=== PATIENT | female | born 1935 | race Caucasian/White ===

== ENCOUNTER 2016-11-23 12:02 | Emergency (ER) | payer BC, MEDICARE ==
--- NOTE | 2016-11-23 13:21 | RAD ---
THREE VIEWS RIGHT WRIST: History: Pain and swelling. Date: 11-23-16 FINDINGS: AP, lateral, and oblique views of the right wrist demonstrate severe osteoarthritic changes seen in the articulation of the base of the first metacarpal and trapezium. No evidence of acute fractures or bony lesions seen otherwise. IMPRESSION: Severe first carpal metacarpal osteoarthritic changes. POS: [facility]
== END 2016-11-23 13:30 | disposition home or self-care (01) ==
LOC: NAV ERS 12:02
DX: M25.531 Pain in right wrist (principal); E78.5 Hyperlipidemia, unspecified; E78.00 Pure hypercholesterolemia, unspecified; I10 Essential (primary) hypertension; Z79.82 Long term (current) use of aspirin; Z79.899 Other long term (current) drug therapy

== ENCOUNTER 2016-12-21 11:24 | Outpatient (CLI) | payer MEDICARE ==
[2016-12-21 13:57] LABS: #Lymphocytes 1.3 thou/uL (1.20-3.40); #Monocytes 0.3 thou/uL (0.11-0.59); #Neutrophils 2.6 thou/uL (1.40-6.50); %Basophils 0.8 % (0.0-1.0); %Eosinophils 0.5 % (0.0-10.0); %Lymphocytes 30.2 % (21.0-51.0); %Monocytes 7.9 % (0.0-10.0); %Neutrophils 60.6 % (42.0-75.0); Hemoglobin 13.1 g/dL (12.0-16.0); Mean Corpuscular HGB CONC 33.7 g/dL (32.0-36.0); Mean Corpuscular Hemoglobin 31.9 pg (27.0-31.0); Mean Corpuscular Volume 94.9 fl (81.0-99.0); Mean Platelet Volume 6.9 fL (7.4-10.4); Platelet Count 253 thou/uL (130-400); RBC Distribution Width 11.6 % (11.5-14.5); Red Blood Cell (RBC) Count 4.11 mill/uL (4.20-5.40); White Blood Cell (WBC) Count 4.3 thou/uL (4.8-10.8)
[2016-12-21 14:12] LABS: ALT (SGPT) 9 U/L (0-55); AST (SGOT) 23 U/L (5-34); Albumin 4.1 g/dL (3.4-4.8); Alkaline Phosphatase 77 U/L (40-150); Anion Gap 14 mmol/L (10-20); BUN (Urea Nitrogen) 9 mg/dL (9.8-20.1); Bilirubin, Direct 0.3 mg/dL (0.1-0.3); Bilirubin, Total 0.8 mg/dL (0.2-1.2); Calc. Creatinine Clearance 0 mL/min (70-130); Calcium 8.9 mg/dL (7.8-10.44); Carbon Dioxide 23 mmol/L (23-31); Cardiac Risk 2.7 (Less than 4.5); Chloride 93 mmol/L (98-107); Cholesterol 152 mg/dL (< 200 Desired); Estimated GFR-MDRD 72; Glucose 99 mg/dL (83-110); HDL Cholesterol 56 mg/dL (>60 Neg Risk); LDL Cholesterol, Calculated 83 mg/dL; Potassium 3.3 mmol/L (3.5-5.1); Protein, Total 6.9 g/dL (5.8-8.1); Sodium 127 mmol/L (136-145); Triglycerides 65 mg/dL (Less than 150)
[2016-12-21 14:55] LABS: Hemoglobin A1c 5.2 % (4.0-6.0)
== END 2016-12-21 11:25 | disposition home or self-care (01) ==
LOC: NAVSJIPCSP 11:24
PROVIDERS: ATTEND Family Medicine
DX: E78.00 Pure hypercholesterolemia, unspecified (principal); K21.9 Gastro-esophageal reflux disease without esophagitis; I10 Essential (primary) hypertension; M62.81 Muscle weakness (generalized); G89.29 Other chronic pain; M54.5 Low back pain; Z79.899 Other long term (current) drug therapy
CPT/HCPCS: 36415; 80048; 80061; 80076; 83036; 84443; 85025

== ENCOUNTER 2017-01-02 19:03 | Emergency (ER) | payer MEDICARE ==
[2017-01-02] MEDS ORDERED: Sodium Chloride 0.9% 1,000 ML ONE (19:48)
[2017-01-02 20:10] LABS: ALT (SGPT) 13 U/L (0-55); AST (SGOT) 24 U/L (5-34); Alkaline Phosphatase 79 U/L (40-150); Anion Gap 16 mmol/L (10-20); BUN (Urea Nitrogen) 19 mg/dL (9.8-20.1); Bilirubin, Total 1.6 mg/dL (0.2-1.2); Calc. Creatinine Clearance 0 mL/min (70-130); Calcium 9.4 mg/dL (7.8-10.44); Carbon Dioxide 23 mmol/L (23-31); Chloride 79 mmol/L (98-107); Estimated GFR-MDRD 73; Globulin 3.2 g/dL (2.4-3.5); Glucose 126 mg/dL (83-110); Protein, Total 7.2 g/dL (5.8-8.1)
[2017-01-02 20:17] LABS: CKMB 3.2 ng/mL (0-6.6); Troponin I Less than 0.010 ng/mL (< 0.028)
[2017-01-02 20:18] LABS: Blood, Urine Negative (Negative); Clarity Slightly Cloudy (Clear); Glucose, Urine (Dipstick) Negative (Negative); Leukocyte Negative (Negative); Nitrite Negative (Negative); Protein, Urine (Dipstick) 30 mg/dL (Neg-Trace); Specific Gravity, Urine 1.015 (1.005-1.030); Urobilinogen > or = 8.0 mg/dL (0.2-1.0)
[2017-01-02 20:21] LABS: #Lymphocytes 1.1 thou/uL (1.20-3.40); #Monocytes 0.7 thou/uL (0.11-0.59); #Neutrophils 5.5 thou/uL (1.40-6.50); %Basophils 0.6 % (0.0-1.0); %Eosinophils 0.1 % (0.0-10.0); %Lymphocytes 14.7 % (21.0-51.0); %Monocytes 9.1 % (0.0-10.0); %Neutrophils 75.5 % (42.0-75.0); Hemoglobin 13.8 g/dL (12.0-16.0); Mean Corpuscular HGB CONC 38.1 g/dL (32.0-36.0); Mean Corpuscular Hemoglobin 32.5 pg (27.0-31.0); Mean Corpuscular Volume 85.5 fl (81.0-99.0); Mean Platelet Volume 7.7 fL (7.4-10.4); PLT Morphology Comment Appears Adequate; Platelet Count 218 thou/uL (130-400); Potassium 2.4 mmol/L (3.5-5.1); RBC Distribution Width 10.3 % (11.5-14.5); RBC Morphology Normal; Red Blood Cell (RBC) Count 4.25 mill/uL (4.20-5.40); Sodium 116 mmol/L (136-145); White Blood Cell (WBC) Count 7.2 thou/uL (4.8-10.8)
[2017-01-02 20:24] LABS: Bilirubin Negative (Negative); Icto Negative (Negative)
--- NOTE | 2017-01-02 20:24 | CT ---
CT BRAIN 01/02/17 HISTORY: 81-year-old who fell Sunday and Sunday nights. Reports dizziness. Noncontrast enhanced CT images of the brain is obtained. The brain is unremarkable except for some d eep white matter ischemic changes. No evidence of acute intracranial masses, hemorrhages, or strokes seen. No evidence of sub or epidural hematoma seen. No evidence of subarachnoid blood seen. No evid ence of intraparenchymal hemorrhages seen. The calvarium is intact. IMPRESSION: Deep white matter ischemic changes. POS: [facility]
[2017-01-02 20:26] LABS: RBC/HPF 0-3 HPF (0-3); WBC/HPF 0-3 HPF (0-3)
[2017-01-02 20:27] LABS: Bacteria/HPF None Seen HPF (None Seen); Squamous Epithelial 0-3 HPF (0-3)
[2017-01-02 20:29] LABS: Crystals/HPF 1+ AMORPH PHOS HPF (Negative); Hyaline Casts/LPF 0-3 HYALINE CAST LPF (0-3 Hyaline)
--- NOTE | 2017-01-02 20:38 | CT ---
CT CERVICAL SPINE 01/02/17 HISTORY: Fall on Sunday and Sunday. Noncontrast enhanced CT images cervical spine obtained. Coronal and sagittal reconstructed images pe rformed. CT images demonstrate no evidence of acute cervical spine fractures. Bilateral facet degene rative changes seen. Posterior osteophytes seen at the C4-5, C5-6, C6-7 and C7-T1 levels. IMPRESSION: Changes of facet and intervertebral disc degeneration. No evidence of acute cervical spine fracture seen. POS: [facility]
[2017-01-02] MEDS ORDERED: Potassium Chloride 20 MEQ TAB ONE (21:04)
== END 2017-01-02 22:30 | disposition short-term general hospital (02) ==
LOC: NAV ERS 19:03
DX: E87.1 Hypo-osmolality and hyponatremia (principal); E87.6 Hypokalemia; E78.00 Pure hypercholesterolemia, unspecified; I10 Essential (primary) hypertension; Z79.899 Other long term (current) drug therapy
CPT/HCPCS: 51701; 70450; 72125; 80053; 81003; 81015; 82553; 84484; 85025; 93005; 96360; A4353; J7050

== ENCOUNTER 2017-01-16 17:00 | Outpatient (CLI) | payer MEDICARE ==
[2017-01-16 20:26] LABS: Anion Gap 14 mmol/L (10-20); BUN (Urea Nitrogen) 12 mg/dL (9.8-20.1); Calc. Creatinine Clearance 0 mL/min (70-130); Calcium 9.1 mg/dL (7.8-10.44); Carbon Dioxide 22 mmol/L (23-31); Chloride 100 mmol/L (98-107); Estimated GFR-MDRD 71; Glucose 106 mg/dL (83-110); Potassium 3.8 mmol/L (3.5-5.1); Sodium 132 mmol/L (136-145)
== END 2017-01-16 17:01 | disposition home or self-care (01) ==
LOC: NAV LAB 17:00
PROVIDERS: ATTEND Family Medicine
DX: E87.1 Hypo-osmolality and hyponatremia (principal)
CPT/HCPCS: 80048

== ENCOUNTER 2017-04-04 16:07 | Outpatient (CLI) | payer MEDICARE ==
--- NOTE | 2017-04-05 07:19 | RAD ---
RIGHT WRIST THREE VIEWS: 04/04/17 HISTORY: Fall. Pain. COMPARISON: 11/23/16. FINDINGS: Diffuse bone demineralization. There are degenerative changes in the first carpometacarpal joint spa ce. Intercarpal and radiocarpal joint space are preserved. Questionable fracture involving the hamate bone, best appreciated on the AP and lateral projections. Correlate for point tenderness. There is irregularity involving the pisiform bone with sclerosis llamas ggesting chronicity. IMPRESSION: Possible carpal bone fracture as above. Correlate for point tenderness. If there is concern, conside r CT. Code T POS: [facility]
--- NOTE | 2017-04-05 07:19 | RAD ---
FOUR VIEW LEFT HIP 04/04/17 INDICATION: Fall with left hip pain. FINDINGS: Partially imaged left hip hardware and left femoral hardware present. There is sclerotic margin from a remote fracture at the intertrochanteric region of the proximal left femur. There is osseous irre gularity with sclerosis involving the inferior left pubic ramus indicating subacute fracture. Slight cortical irregularity, age indeterminate, also involves the medial aspect of the inferior pubic k[place] us. IMPRESSION: Subacute appearing fracture involving the inferior left pubic ramus and slight cortical irregularity at the medial aspect of the inferior right pubic ramus. Correlate clinically. Sclerotic margin from remote fracture involving intertrochanteric region of the proximal left femur. POS: [facility]
--- NOTE | 2017-04-05 07:20 | RAD ---
FRONTAL VIEW PELVIS 04/04/17 CLINICAL HISTORY: Prior left hip injury related to fall. Reference made to 02/04/15. FINDINGS: Partially imaged left hip hardware again seen with heterotopic density. No acute, displaced fracture of the left hip. Interval healing of prior proximal left femoral fracture. There is mild osseous irregularity involving the inferior left pubic ramus, and to a lesser extent t he right inferior pubic ramus. IMPRESSION: Mild osseous irregularity involving the inferior left and right pubic rami. Component of sclerosis i s present. This may be on the basis of a subacute fracture. As necessary, findings may be further as sessed with dedicated CT if clinically indicated. POS: [facility]
== END 2017-04-04 16:08 | disposition home or self-care (01) ==
LOC: NAV RAD 16:07
PROVIDERS: ATTEND Nurse Practitioner Family
DX: M25.552 Pain in left hip (principal); W19.XXXS Unspecified fall, sequela; M25.531 Pain in right wrist; M89.9 Disorder of bone, unspecified; S32.502A Unspecified fracture of left pubis, initial encounter for closed fracture
CPT/HCPCS: 72170

== ENCOUNTER 2017-04-24 08:33 | Outpatient (CLI) | payer MEDICARE ==
[2017-04-24 12:42] LABS: Hemoglobin A1c 5.2 % (4.0-6.0)
[2017-04-24 12:51] LABS: Anion Gap 16 mmol/L (10-20); BUN (Urea Nitrogen) 13 mg/dL (9.8-20.1); Carbon Dioxide 24 mmol/L (23-31); Chloride 104 mmol/L (98-107); Potassium 3.7 mmol/L (3.5-5.1); Sodium 140 mmol/L (136-145)
[2017-04-24 12:52] LABS: ALT (SGPT) 12 U/L (8-55); AST (SGOT) 22 U/L (5-34); Albumin 4.2 g/dL (3.4-4.8); Alkaline Phosphatase 98 U/L (40-150); Bilirubin, Direct 0.3 mg/dL (0.1-0.3); Bilirubin, Total 0.8 mg/dL (0.2-1.2); Calc. Creatinine Clearance 0 mL/min (70-130); Calcium 9.5 mg/dL (7.8-10.44); Cholesterol 178 mg/dl (< 200 Desired); Estimated GFR-MDRD 73; Glucose 97 mg/dL (83-110); HDL Cholesterol 59 mg/dL (>60 Neg Risk); LDL Cholesterol, Calculated 102 mg/dL; Triglycerides 84 mg/dL (Less than 150)
[2017-04-24 14:12] LABS: Band 1 % (5-11); Hemoglobin 13.3 g/dL (12.0-16.0); Lymphocytes 32 % (21-51); MDiff Complete? YES; Mean Corpuscular HGB CONC 32.9 g/dL (32.0-36.0); Mean Corpuscular Hemoglobin 30.9 pg (27.0-31.0); Mean Corpuscular Volume 93.8 fl (81.0-99.0); Monocytes 8 % (0-10); Neutrophil 59 % (42-75); PLT Morphology Comment Appears Adequate; Platelet Count 213 thou/uL (130-400); RBC Distribution Width 11.6 % (11.5-14.5); Red Blood Cell (RBC) Count 4.32 mill/uL (4.20-5.40)
== END 2017-04-24 08:34 | disposition home or self-care (01) ==
LOC: NAVSJIPCSP 08:33
PROVIDERS: ATTEND Family Medicine
DX: I10 Essential (primary) hypertension (principal); M62.81 Muscle weakness (generalized); K21.9 Gastro-esophageal reflux disease without esophagitis; M54.5 Low back pain; F41.9 Anxiety disorder, unspecified; G89.29 Other chronic pain; F32.9 Major depressive disorder, single episode, unspecified; Z79.899 Other long term (current) drug therapy
CPT/HCPCS: 36415; 80048; 80061; 80076; 83036; 84443; 85025

== ENCOUNTER 2020-07-06 20:40 | Inpatient (IN) | payer MEDICARE ==
[2020-07-07 06:17] LABS: #Eosinphils 0.2 thou/uL (0.0-0.7); #Lymphocytes 1.2 thou/uL (1.20-3.40); #Monocytes 0.5 thou/uL (0.11-0.59); #Neutrophils 4.9 thou/uL (1.40-6.50); %Basophils 0.7 % (0.0-1.0); %Eosinophils 3.3 % (0.0-10.0); %Lymphocytes 16.7 % (21.0-51.0); %Monocytes 7.6 % (0.0-10.0); %Neutrophils 71.7 % (42.0-75.0); Hemoglobin 7.1 g/dL (12.0-16.0); Mean Corpuscular HGB CONC 32.1 g/dL (32.0-36.0); Mean Corpuscular Hemoglobin 30.9 pg (27.0-31.0); Mean Corpuscular Volume 96.4 fL (78.0-98.0); Mean Platelet Volume 8.1 fL (7.4-10.4); Platelet Count 163 thou/uL (130-400); RBC Distribution Width 12.5 % (11.5-14.5); Red Blood Cell (RBC) Count 2.29 mill/uL (4.20-5.40); White Blood Cell (WBC) Count 6.9 thou/uL (4.8-10.8)
[2020-07-07 06:30] LABS: ALT (SGPT) 13 U/L (8-55); AST (SGOT) 27 U/L (5-34); Albumin 2.5 g/dL (3.4-4.8); Alkaline Phosphatase 53 U/L (40-110); Anion Gap 12 mmol/L (10-20); BUN (Urea Nitrogen) 19 mg/dL (9.8-20.1); Bilirubin, Total 0.7 mg/dL (0.2-1.2); Calc. Creatinine Clearance 64 mL/min (70-130); Calcium 7.8 mg/dL (7.8-10.44); Carbon Dioxide 24 mmol/L (23-31); Chloride 107 mmol/L (98-107); Estimated GFR-MDRD 84; Globulin 2.1 g/dL (2.4-3.5); Glucose 94 mg/dL (83-110); Potassium 3.8 mmol/L (3.5-5.1); Protein, Total 4.6 g/dL (6.0-8.3); Sodium 139 mmol/L (136-145)
[2020-07-07] MEDS: Calcium Carbonate 600 MG + Vit D TAB PO SCH ×2 (09:00→20:58)
[2020-07-07] MEDS: Carvedilol 6.25 MG TAB PO SCH ×2 (09:00→20:56)
[2020-07-07] MEDS: Gabapentin 100 MG CAP PO SCH ×3 (09:01→20:58)
[2020-07-07] MEDS: Folic Acid 1 MG TAB PO SCH (09:01)
[2020-07-07] MEDS: Furosemide 40 MG TAB PO SCH (09:01)
[2020-07-07] MEDS: Amlodipine 5 MG TAB PO SCH (09:01)
[2020-07-07] MEDS: Ferrous Sulfate 325 MG TAB PO SCH (09:01)
--- NOTE | 2020-07-07 20:03 | HP ---
HISTORY: Ms. Posey is a well-developed 85-year-old white female, patient of mine. She was coming down the porch when she misstepped and fell on her right side. She had a resultant right wrist fracture and a right hip fracture. She was taken to [facility] where she had open reduction and internal fixation done. Postoperatively, she had some altered mental status and some delirium, thought to be secondary to her anesthesia and some early dementia that she has. She eventually was stabilized and now transferred to [facility] for physical therapy and occupational therapy because the therapist at [facility] did not think she was able to tolerate 3 hours of intense therapy daily. PAST MEDICAL HISTORY: Positive for hypertension, hypercholesterolemia, GERD, low back pain, generalized edema, neuropathy, left carpal tunnel syndrome, history of syncope, history of third-degree AV block with pacemaker, fibrocystic disease, mild spinal stenosis, pilonidal cyst, hiatal hernia, GERD, neuropathy, and generalized weakness. PAST SURGICAL HISTORY: Positive for; 1. 1941, tonsillectomy. 2. 1953, appendectomy. 3. 1951, excision of a pilonidal cyst. 4. 1968, BTL. 5. 1987, breast mass removed by Dr. Stanton. 6. Colonoscopy and upper GI EGD done in 1999. 7. Cataract extraction in 2003. 8. Cataract extraction in 2004. 9. Left hip ORIF in [place], 08/2014. 10. Pacemaker, 08/02/2018. 11. Right hip ORIF at [facility], March 2020. FAMILY HISTORY: Reveals the patient's father at age 84 of Parkinson's disease. The patient's mother at age 83 of breast cancer. The patient had 1 brother who at the age 46 of a stroke. The patient has 2 siblings who are living with 1 brother being a diabetic with amputated toes of 1 foot. The patient has a sister with thyroid issues and diagnosed with diabetes and stroke. The patient has 3 sons and 1 daughter. They are all basically healthy. SOCIAL HISTORY: Reveals the patient lives by herself. She does not smoke. She does not drink. She does not do drugs. She is retired and . She has 1 pet dog. ALLERGIES: THE PATIENT IS ALLERGIC TO PENICILLIN, WHICH GIVES HER HIVES; SULFA, WHICH GIVES HER HIVES; PRILOSEC, WHICH GIVES HER NAUSEA AND VOMITING; AND PAXIL, WHICH GIVES HER NAUSEA. PRESENT MEDICATIONS: Reveals the patient is presently on the following; 1. Tylenol q.6 hours 650 mg p.r.n. headache, fever, or mild pain. 2. Amlodipine 5 mg daily. 3. Calcium with vitamin D 600+ 400 one tab b.i.d. 4. Carvedilol 12.5 mg b.i.d. 5. Lovenox 40 mg subcu at bedtime. 6. Ferrous sulfate 325 mg daily. 7. Folic acid 1 mg daily. 8. Lasix 40 mg daily. 9. Gabapentin 100 mg daily. 10. Seroquel 25 mg p.o. at bedtime. REVIEW OF SYSTEMS: CONSTITUTIONAL: The patient denies fever, chills, or night sweats. She states she is somewhat weak and has pain in her right hip. HEENT: Head reveals she denies change in vision or change in hearing. RESPIRATORY: The patient denies cough, cold, congestion, hemoptysis, or productive sputum. CARDIOVASCULAR: The patient denies edema, dyspnea on exertion, chest pain, orthopnea, claudication, or paroxysmal nocturnal dyspnea. GASTROINTESTINAL: The patient denies nausea, vomiting, diarrhea, black or bloody stools. GENITOURINARY: The patient denies nocturia, hematuria, frequency, urgency, dysuria, incontinence, or decreased stream. MUSCULOSKELETAL: The patient complains of right hip pain from a fracture and from a postop surgery. ALLERGIES: The patient denies any significant allergies. NEUROLOGICAL: The patient denies dizziness, syncope, paralysis, numbness. PSYCHOLOGICAL: The patient denies mental illness, psych history, but has had some early dementia recently. PHYSICAL EXAMINATION: GENERAL: This is a well-developed, well-nourished, pleasant 85-year-old white female, in no apparent distress at this time. HEENT: Normocephalic and nontraumatic cranium. Pupils are equally round and reactive. Extraocular movements intact. Nose and throat are slightly dry, but clear. NECK: Supple without masses, nodes, or bruits. CHEST: Clear to auscultation. No rales, rhonchi, wheezes, or cough is heard. Left upper wall reveals a pacemaker. HEART: Reveals a regular rate and rhythm without murmurs, gallops, or rubs. ABDOMEN: Slightly obese, soft, nontender without organomegaly. Normal bowel sounds are noted. No rebound or guarding is noted. GENITOURINARY: Deferred. EXTREMITIES: Reveal a bandage over her right hip. Some trace edema today. NEUROLOGICAL: Grossly intact with no focal findings. ASSESSMENT: 1. Status post right hip fracture. 2. Hypertension. 3. Hyperlipidemia. 4. Gastroesophageal reflux disease. 5. Mild spinal stenosis with resultant low back pain. 6. Edema. 7. Neuropathy. 8. Left carpal tunnel syndrome. 9. Third-degree AV block with pacemaker. 10. Generalized weakness. 11. Pain. PLAN: 1. We will continue to monitor the patient's blood pressure closely and adjust medications as needed. 2. Continue to monitor the patient for reflux. 3. Continue Lovenox at this time. 4. Stress ulcer prophylaxis. 5. Decubitus precautions. 6. DVT prophylaxis per Primary Service. 7. Physical therapy and occupational therapy. Job ID: [id number] [facility] [place]
[2020-07-07] MEDS: Enoxaparin Sodium 40 MG/0.4 ML SYRINGE SC SCH (20:56)
[2020-07-07] MEDS: Acetaminophen 325 MG TAB PO PRN (20:57)
[2020-07-08 06:11] LABS: #Basophils 0.1 thou/uL (0.0-0.2); #Eosinphils 0.3 thou/uL (0.0-0.7); #Lymphocytes 1.7 thou/uL (1.20-3.40); #Monocytes 0.6 thou/uL (0.11-0.59); #Neutrophils 3.2 thou/uL (1.40-6.50); %Eosinophils 4.5 % (0.0-10.0); %Lymphocytes 29.3 % (21.0-51.0); %Monocytes 10.6 % (0.0-10.0); %Neutrophils 54.6 % (42.0-75.0); Mean Corpuscular HGB CONC 31.7 g/dL (32.0-36.0); Mean Corpuscular Hemoglobin 30.4 pg (27.0-31.0); Mean Corpuscular Volume 96.1 fL (78.0-98.0); Mean Platelet Volume 7.9 fL (7.4-10.4); Platelet Count 174 thou/uL (130-400); RBC Distribution Width 12.1 % (11.5-14.5); White Blood Cell (WBC) Count 5.9 thou/uL (4.8-10.8)
[2020-07-08 06:17] LABS: Bilirubin Small (Negative); Blood, Urine Trace (Negative); Clarity Clear (Clear); Glucose, Urine (Dipstick) Negative (Negative); Ketone, Urine Negative (Negative); Leukocyte Negative (Negative); Nitrite Negative (Negative); Protein, Urine (Dipstick) Negative (Neg-Trace); pH, Urine 5.5 (5.0-9.0)
[2020-07-08 06:19] LABS: Bacteria/HPF Rare-Few HPF (None Seen); RBC/HPF 0-3 HPF (0-3); Squamous Epithelial 0-3 HPF (0-3); WBC/HPF 0-3 HPF (0-3)
[2020-07-08] MEDS: Furosemide 40 MG TAB PO SCH (09:21)
[2020-07-08] MEDS: Folic Acid 1 MG TAB PO SCH (09:21)
[2020-07-08] MEDS: Ferrous Sulfate 325 MG TAB PO SCH (09:21)
[2020-07-08] MEDS: Acetaminophen 325 MG TAB PO PRN (09:21)
[2020-07-08] MEDS: Amlodipine 5 MG TAB PO SCH (09:21)
[2020-07-08] MEDS: Gabapentin 100 MG CAP PO SCH ×3 (09:22→20:11)
[2020-07-08] MEDS: Calcium Carbonate 600 MG + Vit D TAB PO SCH ×2 (09:22→20:11)
[2020-07-08] MEDS: Carvedilol 6.25 MG TAB PO SCH ×2 (09:22→20:11)
--- NOTE | 2020-07-08 10:09 | PRG ---
DATE OF SERVICE: 07/08/2020 SUBJECTIVE: Ms. Posey is up in her chair. She just woke up. She is getting ready to work with therapy. Denies any questions or concerns. OBJECTIVE: VITAL SIGNS: She is afebrile, heart rate 75, respirations 20, oxygen saturation 100% on nasal cannula, and blood pressure 131/69. CARDIOVASCULAR: S1 and S2 plus. RESPIRATORY: Normal vesicular breath sounds. ABDOMEN: Soft, obese, nontender. Bowel sounds heard in all quadrants. EXTREMITIES: Without cyanosis or clubbing. Peripheral pulses are palpable. Orthopedic incisions with dressing. CENTRAL NERVOUS SYSTEM: Generalized weakness. IMPRESSION: 1. Right hip fracture, status post surgical fixation. 2. Hypertension. 3. Dyslipidemia. 4. Gastroesophageal reflux disease. 5. Spinal stenosis. 6. Peripheral neuropathy. 7. Right wrist fracture with a splint. PLAN: 1. Continue current medications. 2. Heart healthy diet. 3. Monitor blood pressure and adjust medications. 4. Orthopedic precautions and incision care. 5. DVT prophylaxis per primary service. 6. Decubitus precaution. 7. Stress ulcer prophylaxis. 8. Routine laboratory values. 9. Continue therapy. Job ID: [id number]
[2020-07-08] MEDS: Enoxaparin Sodium 40 MG/0.4 ML SYRINGE SC SCH (20:12)
--- NOTE | 2020-07-09 07:33 | PRG ---
DATE OF SERVICE: 07/09/2020 SUBJECTIVE: Ms. Posey is sleeping, but arousable. She denies any questions or concerns. No family at bedside, discussed with nursing. OBJECTIVE: VITAL SIGNS: She is afebrile. T-max of 99.1 last night. Vitals from this morning are pending. Pulse 91, respirations 20, oxygen saturation 99% on room air, and blood pressure 130/68. CARDIOVASCULAR SYSTEM: S1 and S2 plus. RESPIRATORY SYSTEM: Normal vesicular breath sounds. ABDOMEN: Soft and nontender. Bowel sounds heard in all quadrants. EXTREMITIES: Without cyanosis or clubbing. CENTRAL NERVOUS SYSTEM: Generalized weakness, otherwise nonfocal. IMPRESSION: 1. Right hip fracture, status post surgical fixation. 2. Right wrist fracture, status post fall. 3. Hypertension. 4. Dyslipidemia. 5. Gastroesophageal reflux disease. 6. Spinal stenosis. 7. Peripheral neuropathy. 8. Deconditioning. PLAN: 1. Continue current medications. 2. Heart healthy diet. 3. Orthopedic precautions and incision care. 4. DVT prophylaxis with PlexiPulses. 5. Monitor blood pressure and adjust medications. 6. Decubitus precaution. 7. Stress ulcer prophylaxis. 8. Physical therapy. 9. Routine laboratory values. 10. Dr. Mcmullen on-call this weekend. Job ID: [id number]
[2020-07-09] MEDS: Amlodipine 5 MG TAB PO SCH (08:15)
[2020-07-09] MEDS: Calcium Carbonate 600 MG + Vit D TAB PO SCH ×2 (08:15→20:23)
[2020-07-09] MEDS: Gabapentin 100 MG CAP PO SCH ×3 (08:16→20:23)
[2020-07-09] MEDS: Carvedilol 6.25 MG TAB PO SCH ×2 (08:16→20:24)
[2020-07-09] MEDS: Ferrous Sulfate 325 MG TAB PO SCH (08:16)
[2020-07-09] MEDS: Folic Acid 1 MG TAB PO SCH (08:16)
[2020-07-09] MEDS: Furosemide 40 MG TAB PO SCH (08:16)
[2020-07-09] MEDS: Acetaminophen 325 MG TAB PO PRN ×2 (08:18→15:22)
[2020-07-09] MEDS: Enoxaparin Sodium 40 MG/0.4 ML SYRINGE SC SCH (20:27)
[2020-07-10] MEDS: Amlodipine 5 MG TAB PO SCH (08:58)
[2020-07-10] MEDS: Calcium Carbonate 600 MG + Vit D TAB PO SCH ×2 (08:59→20:42)
[2020-07-10] MEDS: Carvedilol 6.25 MG TAB PO SCH ×2 (08:59→20:43)
[2020-07-10] MEDS: Gabapentin 100 MG CAP PO SCH ×3 (09:00→20:43)
[2020-07-10] MEDS: Furosemide 40 MG TAB PO SCH (09:00)
[2020-07-10] MEDS: Ferrous Sulfate 325 MG TAB PO SCH (09:00)
[2020-07-10] MEDS: Folic Acid 1 MG TAB PO SCH (09:00)
[2020-07-10] MEDS: Enoxaparin Sodium 40 MG/0.4 ML SYRINGE SC SCH (20:42)
[2020-07-11] MEDS: Amlodipine 5 MG TAB PO SCH (08:48)
[2020-07-11] MEDS: Calcium Carbonate 600 MG + Vit D TAB PO SCH ×2 (08:49→20:49)
[2020-07-11] MEDS: Carvedilol 6.25 MG TAB PO SCH ×2 (08:49→20:50)
[2020-07-11] MEDS: Gabapentin 100 MG CAP PO SCH ×3 (08:50→20:50)
[2020-07-11] MEDS: Furosemide 40 MG TAB PO SCH (08:50)
[2020-07-11] MEDS: Ferrous Sulfate 325 MG TAB PO SCH (08:50)
[2020-07-11] MEDS: Folic Acid 1 MG TAB PO SCH (08:50)
[2020-07-11] MEDS: Enoxaparin Sodium 40 MG/0.4 ML SYRINGE SC SCH (20:50)
[2020-07-12 05:52] VITALS: BMI 23.8
[2020-07-12] MEDS: Furosemide 40 MG TAB PO SCH (08:35)
[2020-07-12] MEDS: Ferrous Sulfate 325 MG TAB PO SCH (08:35)
[2020-07-12] MEDS: Gabapentin 100 MG CAP PO SCH ×3 (08:35→21:10)
[2020-07-12] MEDS: Calcium Carbonate 600 MG + Vit D TAB PO SCH ×2 (08:35→21:09)
[2020-07-12] MEDS: Carvedilol 6.25 MG TAB PO SCH ×2 (08:35→21:09)
[2020-07-12] MEDS: Amlodipine 5 MG TAB PO SCH (08:35)
[2020-07-12] MEDS: Folic Acid 1 MG TAB PO SCH (08:35)
--- NOTE | 2020-07-12 10:21 | PRG ---
DATE OF SERVICE: 07/12/2020 SUBJECTIVE: Ms. Posey is a well-developed 85-year-old white female. She misstepped coming on her porch and landed on her right side with resultant right wrist fracture and right hip fracture. She was taken to [facility], where she had open reduction and internal fixation done. Postoperatively, she had mental status changes. She eventually stabilized and transferred to [facility] for PT and OT. The patient states she had a good weekend and she walked quite a bit on Sunday, which was 40 feet and she thinks she walks 60 feet already today. She states she is doing well. She is not constipated. She is eating fairly well. She has no concerns or complaints. OBJECTIVE: VITAL SIGNS: Today reveal blood pressure 118/59, pulse 84, respirations 18, O2 saturation 97% on room air, and T-max 96.8. GENERAL: This is a well-developed, well-nourished, pleasant, 85-year-old white female, in no apparent distress. HEENT: Normocephalic and nontraumatic cranium. Pupils equally round and reactive. Extraocular movements intact. Nose and throat are slightly dry, but clear. NECK: Supple without masses, nodes, or bruits. CHEST: Clear to auscultation. No rales, rhonchi, wheezes, or cough is heard. Left upper wall has pacemaker. HEART: Reveals a regular rate and rhythm without murmurs, gallops, or rubs. ABDOMEN: Soft and nontender. Normal bowel sounds are noted. No rebound or guarding is noted. : Deferred. EXTREMITIES: Reveal bandage still over right hip. Some trace edema, but less than it was. NEUROLOGIC: No focal findings noted. ASSESSMENT: 1. Status post open reduction and internal fixation, right hip. 2. Right wrist fracture. 3. Hypertension. 4. Hyperlipidemia. 5. Gastroesophageal reflux disease. 6. Spinal stenosis with low back pain. 7. Neuropathy. 8. Third-degree atrioventricular block with pacemaker. 9. Pain. 10. Generalized weakness. PLAN: 1. We will continue to monitor the patient's blood pressure closely, adjust medications if needed. 2. Continue to monitor the patient for reflux. 3. Continue Lovenox. 4. Continue stress ulcer prophylaxis. 5. Decubitus precautions. 6. DVT prophylaxis. 7. Physical therapy and occupational therapy. Job ID: [id number]
[2020-07-12] MEDS: Enoxaparin Sodium 40 MG/0.4 ML SYRINGE SC SCH (21:10)
[2020-07-13] MEDS: Folic Acid 1 MG TAB PO SCH (09:24)
[2020-07-13] MEDS: Amlodipine 5 MG TAB PO SCH (09:24)
[2020-07-13] MEDS: Ferrous Sulfate 325 MG TAB PO SCH (09:24)
[2020-07-13] MEDS: Acetaminophen 325 MG TAB PO PRN ×2 (09:24→14:40)
[2020-07-13] MEDS: Carvedilol 6.25 MG TAB PO SCH ×2 (09:24→21:25)
[2020-07-13] MEDS: Furosemide 40 MG TAB PO SCH (09:24)
[2020-07-13] MEDS: Gabapentin 100 MG CAP PO SCH ×3 (09:25→21:25)
[2020-07-13] MEDS: Calcium Carbonate 600 MG + Vit D TAB PO SCH ×2 (09:25→21:25)
--- NOTE | 2020-07-13 10:03 | PRG ---
DATE OF SERVICE: 07/13/2020 SUBJECTIVE: Ms. Posey is a very pleasant well-developed 85-year-old white female. Unfortunately, she was on her porch and she missed a step and landed on her right side. She had a resultant right wrist fracture and a right hip fracture. She was taken to [facility] where she had open reduction and internal fixation done. Postoperatively, she had mental status changes, thought to be postop anesthesia changes. She is eventually stabilized and now transferred to [facility]. She is here for physical therapy and occupational therapy. The patient states she had a good weekend. Yesterday, she walked 67 feet; this morning, her walking is made almost one whole round with one rest stop so far. She states she is doing well and has no concerns or complaints. She is eating fairly well. OBJECTIVE: VITAL SIGNS: Reveal blood pressure today is 119/58, pulse 78, respirations 18, O2 saturation is 96% on room air, T-max 99.7. GENERAL: This is a well-developed, well-nourished, pleasant 85-year-old white female. HEENT: Reveals normocephalic and nontraumatic cranium. The pupils are equally round and reactive. Extraocular movements intact. Nose and throat are slightly dry. NECK: Supple without masses, nodes, or bruits. CHEST: Clear to auscultation. No rales, no rhonchi, no wheezes are heard. No cough is noted. Left upper chest wall has a pacemaker, which is relatively new and doing well. HEART: Reveals a regular rate and rhythm without murmurs, gallops or rubs. ABDOMEN: Soft and nontender without organomegaly. Normal bowel sounds are noted. No rebound or guarding is noted. : Deferred. EXTREMITIES: Reveal large bandage over that right hip with trace edema. NEUROLOGIC: No focal findings. ASSESSMENT: 1. Status post open reduction and internal fixation of right hip. 2. Hypertension. 3. Hyperlipidemia. 4. Gastroesophageal reflux disease. 5. Spinal stenosis. 6. Right wrist fracture. 7. Neuropathy. 8. Third-degree atrioventricular block with implanted pacemaker. 9. Pain. 10. Generalized weakness. PLAN: 1. Continue to monitor the patient closely for blood pressure changes and adjust medications as needed. 2. Continue to monitor the patient for reflux. 3. Continue Lovenox. 4. Stress ulcer prophylaxis. 5. Decubitus precautions. 6. DVT prophylaxis. 7. Physical therapy and occupational therapy. Job ID: [id number]
[2020-07-13] MEDS: Enoxaparin Sodium 40 MG/0.4 ML SYRINGE SC SCH (21:26)
[2020-07-14] MEDS: Furosemide 40 MG TAB PO SCH (09:07)
[2020-07-14] MEDS: Acetaminophen 325 MG TAB PO PRN (09:07)
[2020-07-14] MEDS: Calcium Carbonate 600 MG + Vit D TAB PO SCH ×2 (09:07→20:24)
[2020-07-14] MEDS: Carvedilol 6.25 MG TAB PO SCH ×2 (09:07→20:24)
[2020-07-14] MEDS: Amlodipine 5 MG TAB PO SCH (09:08)
[2020-07-14] MEDS: Ferrous Sulfate 325 MG TAB PO SCH (09:09)
[2020-07-14] MEDS: Folic Acid 1 MG TAB PO SCH (09:09)
[2020-07-14] MEDS: Gabapentin 100 MG CAP PO SCH ×3 (09:09→20:24)
[2020-07-14] MEDS ORDERED: Polyethylene Glycol 3350 17 GM Packet PO SCH (12:30)
--- NOTE | 2020-07-14 13:08 | PRG ---
DATE OF SERVICE: 07/14/2020 SUBJECTIVE: Ms. Posey is a well-developed, well-nourished, very pleasant, 85-year-old white female. She unfortunately fell off her porch and landed on her right side with resultant right wrist fracture, Colles fracture, and a right hip fracture. She was taken to the surgical suite, where she had open reduction and internal fixation done. Postoperatively, she had some mental status changes most likely secondary to her anesthesia, but also she began to have some dementia problems. She eventually was stabilized and transferred to [facility] for PT and OT to increase her strength and stamina. The patient states she is doing better and she thinks she walked all the way around the [facility] area inside the hospital, but she did have to stop several times to rest. She has no concerns or complaints today. OBJECTIVE: VITAL SIGNS: Reveal blood pressure this morning 122/58, pulse 75, respirations 18, O2 saturation 96% on room air, T-max 98.2. GENERAL: On physical exam, she is a well-developed, well-nourished, pleasant 85-year-old white female, in no apparent distress at this time. She thinks she is doing well and wants to go home soon. HEENT: Normocephalic and nontraumatic cranium. Pupils are equally round and reactive. Extraocular movements are intact. Nose and throat are clear. NECK: Supple without masses, nodes, or bruits. CHEST: Clear to auscultation. No rales, rhonchi, wheezes, or cough is heard. Left upper chest wall has pacemaker. HEART: Reveals a regular rate and rhythm without murmurs, gallops, or rubs. ABDOMEN: Slightly obese, soft, nontender. Normal bowel sounds are noted in all 4 quadrants. No rebound or guarding is noted. : Deferred. EXTREMITIES: Reveal bandage over the left hip with trace edema distally. No significant drainage is noted to the dressing. NEUROLOGIC: No focal findings. ASSESSMENT: 1. Status post open reduction and internal fixation of the right hip. 2. Hypertension. 3. Hyperlipidemia. 4. Gastroesophageal reflux disease. 5. History of spinal stenosis. 6. Right Colles fracture. 7. Third-degree AV block with implanted pacemaker. 8. Neuropathy. 9. Generalized weakness. PLAN: 1. We will continue the patient with physical therapy and occupational therapy until she is able to be discharged because she lives by herself and has to be independent. 2. Continue to monitor the patient's blood pressure closely and make adjustments as needed. 3. Continue to monitor the patient for reflux. 4. Continue Lovenox. 5. Stress ulcer prophylaxis. 6. Decubitus precautions. 7. Continue supportive care. Job ID: [id number]
[2020-07-14] MEDS: Enoxaparin Sodium 40 MG/0.4 ML SYRINGE SC SCH (20:25)
[2020-07-15] MEDS: Calcium Carbonate 600 MG + Vit D TAB PO SCH ×2 (08:54→20:28)
[2020-07-15] MEDS: Amlodipine 5 MG TAB PO SCH (08:54)
[2020-07-15] MEDS: Carvedilol 6.25 MG TAB PO SCH ×2 (08:55→20:27)
[2020-07-15] MEDS: Gabapentin 100 MG CAP PO SCH ×3 (08:56→20:27)
[2020-07-15] MEDS: Ferrous Sulfate 325 MG TAB PO SCH (08:56)
[2020-07-15] MEDS: Furosemide 40 MG TAB PO SCH (08:56)
[2020-07-15] MEDS: Folic Acid 1 MG TAB PO SCH (08:56)
[2020-07-15] MEDS: Polyethylene Glycol 3350 17 GM Packet PO SCH (08:56)
--- NOTE | 2020-07-15 19:37 | PRG ---
DATE OF SERVICE: 07/15/2020 SUBJECTIVE: Ms. Posey is a well-developed, pleasant 85-year-old white female. She fell off her porch and landed on her right hip with resultant right wrist fracture and a right hip fracture. She was taken to surgical suite and had open reduction and internal fixation done. Postoperatively, she had mental status changes, most likely secondary to anesthesia. She eventually was stabilized and transferred to [facility] for PT and OT to increase her strength and stamina. The patient was found in the bed on the bedpan this morning. She states she refused therapy this morning because she had to have a bowel movement. Otherwise, she has no concerns or complaints. I told her that she needs to make that up and not lose any therapy since she only has therapy 5 days a week. OBJECTIVE: VITAL SIGNS: Today reveal blood pressure 113/55, pulse 75, respirations 18, O2 saturation 97% on room air, and T-max 97.9. GENERAL: This is a well-developed, well-nourished, pleasant, thin white female, in no apparent distress at this time. HEENT: Reveals normocephalic and nontraumatic cranium. Pupils equally round and reactive. Extraocular movements are intact. Nose and throat are slightly dry. NECK: Supple without masses, nodes, or bruits. CHEST: Clear to auscultation. No rales, rhonchi, wheezes are heard. HEART: Reveals a regular rate and rhythm without murmurs, gallops, or rubs. ABDOMEN: Soft and nontender without organomegaly. Normal bowel sounds were noted. No rebound or guarding was noted. No CVA tenderness was noted. : Exam is deferred. EXTREMITIES: Reveal no clubbing, cyanosis, or edema. The right hip is still bandaged. ASSESSMENT: 1. Hypertension. 2. Hyperlipidemia. 3. Gastroesophageal reflux disease. 4. History of spinal stenosis. 5. Status post open reduction and internal fixation of the right hip. 6. Right Colles fracture. 7. Third-degree atrioventricular block with implanted pacemaker. 8. Neuropathy. 9. Generalized weakness. PLAN: 1. Continue to monitor the patient's blood pressure closely, adjust medications if needed. 2. Monitor the patient for reflux. 3. Continue Lovenox. 4. Stress ulcer prophylaxis. 5. Decubitus precautions. 6. Continue supportive care. 7. Continue PT and OT. Job ID: [id number]
[2020-07-15] MEDS: Enoxaparin Sodium 40 MG/0.4 ML SYRINGE SC SCH (20:27)
[2020-07-16] MEDS: Acetaminophen 325 MG TAB PO PRN (10:11)
[2020-07-16] MEDS: Carvedilol 6.25 MG TAB PO SCH ×2 (10:11→20:56)
[2020-07-16] MEDS: Furosemide 40 MG TAB PO SCH (10:12)
[2020-07-16] MEDS: Calcium Carbonate 600 MG + Vit D TAB PO SCH ×2 (10:12→20:55)
[2020-07-16] MEDS: Folic Acid 1 MG TAB PO SCH (10:12)
[2020-07-16] MEDS: Amlodipine 5 MG TAB PO SCH (10:12)
[2020-07-16] MEDS: Gabapentin 100 MG CAP PO SCH ×3 (10:12→20:56)
[2020-07-16] MEDS: Polyethylene Glycol 3350 17 GM Packet PO SCH (10:12)
[2020-07-16] MEDS: Ferrous Sulfate 325 MG TAB PO SCH (10:12)
[2020-07-16] MEDS ORDERED: FLU VACC QS2020-21(65YR UP)/PF 240 MCG/0.7 ML SYRINGE IM ONE (16:00)
--- NOTE | 2020-07-16 16:12 | PRG ---
DATE OF SERVICE: 07/16/2020 SUBJECTIVE: Ms. Posey is a well-developed, well-nourished, very pleasant, 85-year-old white female, who fell off her porch and landed on her right hip. She had a resultant right wrist Colles fracture and a right hip fracture. She was taken to the surgical suite and had open reduction and internal fixation done. Postoperatively, she had a slow recovery from anesthesia, but eventually stabilized. She was transferred to [facility] for physical therapy and occupational therapy to increase her strength and stamina. This afternoon, the patient was found in bed. She did have therapy this morning, but said that she had quite a bit of pain this morning. She is looking forward to her restful weekend and getting started again next week. She has no concerns or complaints otherwise. OBJECTIVE: VITAL SIGNS: Today reveal blood pressure is 103/55, pulse 72, respirations 20, O2 saturations 99% on room air, T-max 97.8. GENERAL: This is a well-developed, well-nourished, pleasant white female, in no apparent distress at this time. HEENT: Reveals normocephalic and nontraumatic cranium. Pupils are equally round and reactive. Extraocular movements are intact. Nose and throat are clear. NECK: Supple without masses, nodes, or bruits. CHEST: Clear to auscultation. No rales, rhonchi, wheezes, or cough is heard. HEART: Reveals a regular rate and rhythm without murmurs, gallops, or rubs. ABDOMEN: Soft and nontender without organomegaly. Normal bowel sounds are noted in all 4 quadrants. No rebound or guarding is noted. : Deferred. EXTREMITIES: Reveal no clubbing, cyanosis, or edema. Right hip is somewhat more painful today, but she has been walking all week. ASSESSMENT: 1. Hypertension. 2. Hyperlipidemia. 3. Gastroesophageal reflux disease. 4. History of spinal stenosis. 5. Status post open reduction and internal fixation of the right hip. 6. Right Colles fracture, splinted. 7. Third-degree AV block with implanted pacemaker. 8. Neuropathy. 9. Generalized weakness. PLAN: 1. Continue to monitor the patient's blood pressure closely and adjust medications if needed. 2. Monitor the patient for reflux. 3. Continue Lovenox. 4. Stress ulcer prophylaxis. 5. Decubitus precautions. 6. Continue supportive care. 7. Continue physical therapy and occupational therapy. Job ID: [id number]
[2020-07-16] MEDS: Enoxaparin Sodium 40 MG/0.4 ML SYRINGE SC SCH (20:55)
[2020-07-17] MEDS: Calcium Carbonate 600 MG + Vit D TAB PO SCH ×2 (08:50→21:01)
[2020-07-17] MEDS: Carvedilol 6.25 MG TAB PO SCH ×2 (08:50→21:01)
[2020-07-17] MEDS: Ferrous Sulfate 325 MG TAB PO SCH (08:51)
[2020-07-17] MEDS: Amlodipine 5 MG TAB PO SCH (08:51)
[2020-07-17] MEDS: Gabapentin 100 MG CAP PO SCH ×3 (08:51→21:01)
[2020-07-17] MEDS: Folic Acid 1 MG TAB PO SCH (08:51)
[2020-07-17] MEDS: Furosemide 40 MG TAB PO SCH (08:51)
[2020-07-17] MEDS: Polyethylene Glycol 3350 17 GM Packet PO SCH (08:51)
[2020-07-17] MEDS: Acetaminophen 325 MG TAB PO PRN (16:12)
--- NOTE | 2020-07-17 16:46 | PRG ---
DATE OF SERVICE: 07/17/2020 SUBJECTIVE: Ms. Posey is doing well. She had an episode of precordial chest pain which she states moved from the right chest to the left chest. She describes this as a sharp pain. She was resting in her chair when this happened. The pain has since gotten better. It is not radiating anywhere. No shortness of breath. No heartburn. No history of similar episodes in the past. I was able to reproduce the pain. I did advise her this most likely is musculoskeletal and Tylenol should help. OBJECTIVE: VITAL SIGNS: She is afebrile, heart rate 80, respirations 17, oxygen saturation 93% on room air, blood pressure 106/51. CARDIOVASCULAR SYSTEM: S1-S2 plus. RESPIRATORY SYSTEM: Normal vesicular breath sounds. ABDOMEN: Soft, nontender. Bowel sounds in all quadrants. EXTREMITIES: Without cyanosis or clubbing. CENTRAL NERVOUS SYSTEM: Grossly nonfocal. IMPRESSION: 1. Right hip fracture, status post surgical fixation. 2. Musculoskeletal chest pain. 3. Hypertension. 4. Dyslipidemia. 5. Gastroesophageal reflux disease. 6. Spinal stenosis. 7. Peripheral neuropathy. PLAN: 1. Continue current medications. 2. Tylenol for the musculoskeletal chest wall pain. 3. Orthopedic precautions. 4. DVT prophylaxis. 5. Decubitus precautions. 6. Stress ulcer prophylaxis. 7. Routine laboratory values. 8. Continue therapy. Job ID: [id number]
[2020-07-17] MEDS: Enoxaparin Sodium 40 MG/0.4 ML SYRINGE SC SCH (21:01)
[2020-07-18] MEDS: Carvedilol 6.25 MG TAB PO SCH ×2 (09:17→20:44)
[2020-07-18] MEDS: Folic Acid 1 MG TAB PO SCH (09:17)
[2020-07-18] MEDS: Calcium Carbonate 600 MG + Vit D TAB PO SCH ×2 (09:17→20:44)
[2020-07-18] MEDS: Gabapentin 100 MG CAP PO SCH ×3 (09:18→20:44)
[2020-07-18] MEDS: Amlodipine 5 MG TAB PO SCH (09:18)
[2020-07-18] MEDS: Ferrous Sulfate 325 MG TAB PO SCH (09:18)
[2020-07-18] MEDS: Furosemide 40 MG TAB PO SCH (09:18)
[2020-07-18] MEDS: Polyethylene Glycol 3350 17 GM Packet PO SCH (09:19)
--- NOTE | 2020-07-18 16:04 | PRG ---
DATE OF SERVICE: 07/18/2020 SUBJECTIVE: Ms. Posey is up in her chair. No further chest pain. She denies any questions or concerns. She is happy with her progress. OBJECTIVE: VITAL SIGNS: She is afebrile. Heart rate is 74, respirations 18, oxygen saturation 95% on room air, blood pressure 112/57. CARDIOVASCULAR SYSTEM: S1, S2 plus. RESPIRATORY SYSTEM: Normal vesicular breath sounds. ABDOMEN: Soft and nontender. Bowel sounds heard in all quadrants. EXTREMITIES: Without cyanosis or clubbing. Peripheral pulses are palpable. CENTRAL NERVOUS SYSTEM: Generalized weakness, otherwise nonfocal. IMPRESSION: 1. Recent right hip fracture, status post surgical fixation. 2. Hypertension. 3. Dyslipidemia. 4. Gastroesophageal reflux disease. 5. Spinal stenosis. 6. Peripheral neuropathy. PLAN: 1. Continue current medications. 2. Orthopedic precautions. 3. DVT prophylaxis with Lovenox. 4. Decubitus precautions. 5. Stress ulcer prophylaxis. 6. Physical therapy. 7. Routine laboratory values. 8. Dr. Ward will assume care at 9:00 p.[address] [facility]. Job ID: [id number]
[2020-07-18] MEDS: Enoxaparin Sodium 40 MG/0.4 ML SYRINGE SC SCH (20:43)
[2020-07-19] MEDS: Polyethylene Glycol 3350 17 GM Packet PO SCH (09:18)
[2020-07-19] MEDS: Calcium Carbonate 600 MG + Vit D TAB PO SCH ×2 (09:19→20:28)
[2020-07-19] MEDS: Carvedilol 6.25 MG TAB PO SCH ×2 (09:19→20:28)
[2020-07-19] MEDS: Amlodipine 5 MG TAB PO SCH (09:19)
[2020-07-19] MEDS: Ferrous Sulfate 325 MG TAB PO SCH (09:20)
[2020-07-19] MEDS: Folic Acid 1 MG TAB PO SCH (09:20)
[2020-07-19] MEDS: Gabapentin 100 MG CAP PO SCH ×3 (09:20→20:28)
[2020-07-19] MEDS: Furosemide 40 MG TAB PO SCH (09:20)
--- NOTE | 2020-07-19 10:10 | PRG ---
DATE OF SERVICE: 07/19/2020 SUBJECTIVE: Ms. Posey is a well-developed, well-nourished 85-year-old white female, who fell off her porch. She landed on her right hip and had a resultant right Colles fracture and a right hip fracture. She was taken to the surgical suite and had an ORIF done of the right hip. The right Colles fracture was placed in a splint. She was transferred to [facility] for PT and OT to increase her strength and stamina. The patient is known to live by herself, but she has a granddaughter who occasionally comes in. She states she had a good weekend and was seen walking in the halls today. She is walking much better than I saw her walk last Sunday. She seems much more confident, much more stable, and much less pain. VITAL SIGNS: Today reveal blood pressure 112/59, pulse 73, respirations 18, O2 saturation 97% on room air, and T-max 98.6. PHYSICAL EXAMINATION: GENERAL: This is a well-developed, well-nourished white female in no apparent distress at this time. HEENT: Reveals normocephalic, nontraumatic cranium. Pupils are equally round and reactive. Extraocular movements are intact. Nose and throat are dry. NECK: Supple without masses, nodes, or bruits. CHEST: Clear to auscultation. No rales, rhonchi, or wheezes are heard. No cough is noted. HEART: Reveals a regular rate and rhythm without murmurs, gallops, or rubs. ABDOMEN: Slightly distended. Soft and nontender without organomegaly. Normal bowel sounds are noted in all 4 quadrants. No rebound or guarding is noted. GENITOURINARY: Deferred. EXTREMITIES: Reveal no clubbing, cyanosis, or edema. The right hip is much less sore and much less painful. ASSESSMENT: 1. Hypertension. 2. Gastroesophageal reflux disease. 3. Hyperlipidemia. 4. History of spinal stenosis. 5. Status post open reduction internal fixation, right hip. 6. Colles fracture, right side, splinted. 7. 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 8. Neuropathy. 9. Generalized weakness. PLAN: 1. Continue to encourage the patient to walk well and to transfer. 2. Continue to monitor the patient's blood pressure closely. 3. Adjust the patient's blood pressure medicines if needed. 4. Monitor the patient for reflux. 5. Continue Lovenox. 6. Stress ulcer prophylaxis. 7. Decubitus precautions. 8. Continue supportive care. 9. Physical therapy and occupational therapy. Job ID: [id number]
[2020-07-19] MEDS: Enoxaparin Sodium 40 MG/0.4 ML SYRINGE SC SCH (20:28)
[2020-07-20] MEDS: Calcium Carbonate 600 MG + Vit D TAB PO SCH ×2 (08:57→20:35)
[2020-07-20] MEDS: Carvedilol 6.25 MG TAB PO SCH ×2 (08:57→20:36)
[2020-07-20] MEDS: Ferrous Sulfate 325 MG TAB PO SCH (08:57)
[2020-07-20] MEDS: Amlodipine 5 MG TAB PO SCH (08:57)
[2020-07-20] MEDS: Gabapentin 100 MG CAP PO SCH ×3 (08:58→20:35)
[2020-07-20] MEDS: Folic Acid 1 MG TAB PO SCH (08:58)
[2020-07-20] MEDS: Polyethylene Glycol 3350 17 GM Packet PO SCH (08:58)
[2020-07-20] MEDS: Furosemide 40 MG TAB PO SCH (08:58)
[2020-07-20] MEDS: Acetaminophen 325 MG TAB PO PRN (09:03)
--- NOTE | 2020-07-20 10:37 | PRG ---
DATE OF SERVICE: 07/20/2020 SUBJECTIVE: Ms. Posey is a well-developed 85-year-old white female, who fell off her porch. She landed on her right side with a resultant right Colles fracture and resultant right hip fracture. She was taken to surgical suite and had ORIF done by Dr. Kosta Mendoza. She has appointment with Dr. Mendoza on . Right Colles fracture was placed in a splint. She has now been transferred to [facility] for PT and OT to increase her strength and stamina. The patient states she is doing well. She states she slept well and slept through breakfast. She has declined therapy this morning because she had just awakened. I cautioned her about declining therapy. She did walk well last night 230 feet in the morning and 230 feet in the afternoon. OBJECTIVE: VITAL SIGNS: Today reveal blood pressure is 125/60, pulse 78, respirations 18, oxygen saturation is 98% on room air, and T-max is 98.1. GENERAL: This is a well-developed, well-nourished, pleasant, slightly obese 85-year-old white female with a right hip fracture. She is postop and actually beginning to do much better. HEENT: Normocephalic and nontraumatic cranium. The pupils are equally round and reactive. Extraocular movements are intact. Nose and throat are dry. NECK: Supple without masses, nodes, or bruits. CHEST: Clear to auscultation. No rales, rhonchi, or wheezes are heard. HEART: Reveals a regular rate and rhythm without murmurs, gallops, or rubs. ABDOMEN: Slightly distended, soft, nontender. Normal bowel sounds are noted in all 4 quadrants. No rebound or guarding is noted. : Deferred. EXTREMITIES: Reveal no clubbing, cyanosis, or edema. The patient continues to do well and was walking well with less hip pain and less soreness. ASSESSMENT: 1. Hypertension. 2. Gastroesophageal reflux disease. 3. Hyperlipidemia. 4. History of spinal stenosis. 5. Status post open reduction and internal fixation of the right hip. 6. Colles fracture, right side, splinted. 7. Third-degree AV block with implanted pacemaker. 8. Neuropathy. 9. Generalized weakness. PLAN: 1. The patient is scheduled to see Dr. Kosat Mendoza on for followup for both her fractures, they are Colles fracture and hip fracture. 2. Continue to monitor the patient's blood pressure closely and adjust medications if needed. 3. Continue Lovenox. 4. Continue to monitor the patient's reflux. 5. Stress ulcer prophylaxis. 6. Decubitus precautions. 7. Continue supportive care. 8. Physical therapy and occupational therapy. Job ID: [id number] MTDD
[2020-07-20] MEDS: Enoxaparin Sodium 40 MG/0.4 ML SYRINGE SC SCH (20:36)
[2020-07-21] MEDS: Calcium Carbonate 600 MG + Vit D TAB PO SCH ×2 (09:02→20:19)
[2020-07-21] MEDS: Carvedilol 6.25 MG TAB PO SCH ×2 (09:02→20:19)
[2020-07-21] MEDS: Polyethylene Glycol 3350 17 GM Packet PO SCH (09:02)
[2020-07-21] MEDS: Ferrous Sulfate 325 MG TAB PO SCH (09:03)
[2020-07-21] MEDS: Amlodipine 5 MG TAB PO SCH (09:03)
[2020-07-21] MEDS: Folic Acid 1 MG TAB PO SCH (09:03)
[2020-07-21] MEDS: Furosemide 40 MG TAB PO SCH (09:03)
[2020-07-21] MEDS: Gabapentin 100 MG CAP PO SCH ×3 (09:03→20:19)
[2020-07-21] MEDS: Enoxaparin Sodium 40 MG/0.4 ML SYRINGE SC SCH (20:19)
--- NOTE | 2020-07-22 06:44 | PRG ---
DATE OF SERVICE: 07/21/2020 SUBJECTIVE: Ms. Posey is a well-developed, well-nourished, 85-year-old white female. She fell off her porch and landed on her right side. She had a resultant right Colles fracture and a resultant right hip fracture. She was taken to surgical suite and had ORIF done by Dr. Kosta Mendoza. She eventually was stabilized and transferred to [facility] for physical therapy, occupational therapy, and pain management. The patient states she is doing fairly well and walking better, but Therapy states she is very unstable and has to be cued quite a bit to keep her on track. She does have an appointment with Dr. Kosta Mendoza tomorrow, which is . The patient has no concerns or complaints. She states she is eating well. She did decline therapy once because she just woke up and I told her that she needs to really make sure she gets it rescheduled. PHYSICAL EXAMINATION: VITAL SIGNS: Today reveal blood pressure 114/57, pulse 82, respirations 18 to 20, O2 saturation 99% on room air, and T-max 96.8. GENERAL: This is a well-developed, well-nourished, pleasant, 85-year-old white female, in no apparent distress at this time. HEENT: Reveals normocephalic and nontraumatic cranium. Pupils are equally round and reactive. Extraocular movements are intact. Nose and throat are moist today. NECK: Supple without masses, nodes, or bruits. CHEST: Clear to auscultation. No rales, rhonchi, wheezes, or cough is heard. HEART: Reveals a regular rate and rhythm without murmurs, gallops, or rubs. ABDOMEN: Soft and nontender. Normal bowel sounds noted in all 4 quadrants. No rebound or guarding is noted. : Deferred. EXTREMITIES: Reveal the patient denies clubbing, cyanosis, or edema. The patient continues to do fairly well and walk with less hip pain. ASSESSMENT: 1. Hypertension. 2. Gastroesophageal reflux disease. 3. Hyperlipidemia. 4. History of spinal stenosis. 5. Status post open reduction and internal fixation of the right hip. 6. Colles fracture, right side, splinted. 7. Third-degree atrioventricular block with implanted pacemaker. 8. Neuropathy. 9. Generalized weakness. PLAN: 1. The patient is to see Dr. Kosta Mendoza on for followup of her fractures, both her hip fracture and her Colles fracture. 2. Continue to monitor the patient's blood pressure closely and adjust medications as needed. 3. Continue Lovenox. 4. Continue to monitor the patient's reflux. 5. Stress ulcer prophylaxis. 6. Decubitus precautions. 7. Continue supportive care. 8. Continue physical therapy and occupational therapy. Job ID: [id number]
[2020-07-22] MEDS: Gabapentin 100 MG CAP PO SCH ×3 (08:35→20:20)
[2020-07-22] MEDS: Amlodipine 5 MG TAB PO SCH (08:35)
[2020-07-22] MEDS: Furosemide 40 MG TAB PO SCH (08:35)
[2020-07-22] MEDS: Calcium Carbonate 600 MG + Vit D TAB PO SCH ×2 (08:35→20:20)
[2020-07-22] MEDS: Carvedilol 6.25 MG TAB PO SCH ×2 (08:35→20:19)
[2020-07-22] MEDS: Ferrous Sulfate 325 MG TAB PO SCH (08:36)
[2020-07-22] MEDS: Folic Acid 1 MG TAB PO SCH (08:36)
[2020-07-22] MEDS: Polyethylene Glycol 3350 17 GM Packet PO SCH (08:36)
--- NOTE | 2020-07-22 19:56 | PRG ---
DATE OF SERVICE: 07/22/2020 SUBJECTIVE: Ms. Posey is an 85-year-old very pleasant white female. She fell off a porch and landed on her right thigh and had a resultant right hip fracture. She also had a right Colles fracture. She was taken to surgical suite, had ORIF of the right hip done by Dr. Kosta Mendoza. She eventually was stabilized and transferred to [facility] for physical therapy, occupational therapy, and pain management. The patient is doing well with the pain management and actually saw Dr. Mendoza for followup. He wants to see her again in one month. He did put her right Colles fracture in a Colles splint with Velcro. She states it is much more comfortable and she will be able to do more things with it now. She states she seems to be doing fairly well and we will send update on her physical therapy, occupational therapy routine. OBJECTIVE: VITAL SIGNS: Reveal blood pressure this morning 125/60, pulse 78, respirations 16, O2 saturation 98% on room air, T-max 98.7. GENERAL: On physical exam, this is a well-developed, well-nourished, pleasant, slightly obese white female, in no apparent distress at this time. HEENT: Reveals normocephalic and nontraumatic cranium. Pupils equally round and reactive. Extraocular movements intact. Nose and throat are slightly dry, but clear. NECK: Supple without masses, nodes, or bruits. CHEST: Clear to auscultation. No rales, rhonchi, wheezes, or cough is heard. HEART: Reveals a regular rate and rhythm without murmurs, gallops, or rubs. ABDOMEN: Soft and nontender without organomegaly. Normal bowel sounds are noted in all 4 quadrants. No rebound or guarding is noted. GENITOURINARY: Deferred. EXTREMITIES: Reveal no clubbing or cyanosis, with trace edema in the right leg. ASSESSMENT: 1. Hypertension. 2. Gastroesophageal reflux disease. 3. Hyperlipidemia. 4. History of spinal stenosis. 5. Status post open reduction and internal fixation of the right hip. 6. Status post Colles fracture, immobilized with a splint. 7. Third-degree AV block with implanted pacemaker. 8. Neuropathy. 9. Generalized weakness. PLAN: 1. The patient will continue her physical therapy and occupational therapy here. 2. She will continue to wear her Colles splint. 3. Continue to monitor the patient's blood pressure closely and adjust medications if needed. 4. Continue Lovenox. 5. Continue to monitor the patient's reflux symptoms. 6. Stress ulcer prophylaxis. 7. Decubitus precautions. 8. Continue supportive care. Job ID: [id number]
[2020-07-22] MEDS: Enoxaparin Sodium 40 MG/0.4 ML SYRINGE SC SCH (20:19)
[2020-07-23] MEDS: Calcium Carbonate 600 MG + Vit D TAB PO SCH ×2 (08:21→20:31)
[2020-07-23] MEDS: Gabapentin 100 MG CAP PO SCH ×3 (08:21→20:32)
[2020-07-23] MEDS: Polyethylene Glycol 3350 17 GM Packet PO SCH (08:21)
[2020-07-23] MEDS: Carvedilol 6.25 MG TAB PO SCH ×2 (08:21→20:32)
[2020-07-23] MEDS: Amlodipine 5 MG TAB PO SCH (08:21)
[2020-07-23] MEDS: Acetaminophen 325 MG TAB PO PRN ×2 (08:22→17:29)
[2020-07-23] MEDS: Ferrous Sulfate 325 MG TAB PO SCH (08:22)
[2020-07-23] MEDS: Folic Acid 1 MG TAB PO SCH (08:22)
[2020-07-23] MEDS: Furosemide 40 MG TAB PO SCH (08:22)
--- NOTE | 2020-07-23 15:32 | PRG ---
DATE OF SERVICE: 07/23/2020 SUBJECTIVE: The patient is a well-developed 85-year-old white female, who fell off a porch and landed on her right side. She had a resultant right hip fracture. She was taken to surgical suite, had ORIF done of the right hip by Dr. Kosta Mendoza and had her right Colles fracture splinted. She was eventually stabilized and transferred to [facility] for PT, OT, and pain management. When the patient was transferred here, she was unable to even stand because of so much pain. Now she is still walking very well and has her arm in a Colles splint with Velcro. She states it feels much more comfortable, is more restricted, does not hurt. She seems to be doing fairly well, eating well, but she still has quite a bit of balance problems. OBJECTIVE: VITAL SIGNS: Reveal blood pressure is 107/58, pulse 70, respirations 20, O2 saturation 97% on room air, T-max 96.9. GENERAL: This is a well-developed 85-year-old white female, in no apparent distress at this time. HEENT: Reveals normocephalic and nontraumatic cranium. Pupils are equally round and reactive. Extraocular movements are intact. Nose and throat are slightly dry, but clear. NECK: Supple without masses, nodes, or bruits. CHEST: Clear to auscultation. No rales, rhonchi, wheezes, or cough is heard. HEART: Reveals a regular rate and rhythm without murmurs, gallops, or rubs. ABDOMEN: Soft and nontender without organomegaly. Normal bowel sounds are noted in all 4 quadrants. No rebound or guarding is noted. : Deferred. EXTREMITIES: Reveal no clubbing, cyanosis, or edema. ASSESSMENT: 1. Hypertension. 2. Gastroesophageal reflux. 3. Hyperlipidemia. 4. History of spinal stenosis. 5. Status post open reduction and internal fixation of right hip. 6. Status post Colles fracture immobilized with a splint. 7. Third-degree AV block with implanted pacemaker. 8. Neuropathy. 9. Generalized weakness. PLAN: 1. Continue with Colles splint. 2. Continue to monitor the patient's blood pressure closely. Adjust medications as needed. 3. Continue to monitor the patient's reflux symptoms. 4. Stress ulcer prophylaxis. 5. Decubitus precautions. 6. Continue Lovenox for DVT. 7. Continue supportive care. 8. Continue physical therapy and occupational therapy. Job ID: [id number]
[2020-07-23] MEDS ORDERED: Sodium Chloride 0.9% 20 ML ONE (16:44)
[2020-07-23] MEDS: Enoxaparin Sodium 40 MG/0.4 ML SYRINGE SC SCH (20:32)
[2020-07-24] MEDS: Amlodipine 5 MG TAB PO SCH (08:38)
[2020-07-24] MEDS: Furosemide 40 MG TAB PO SCH (08:39)
[2020-07-24] MEDS: Folic Acid 1 MG TAB PO SCH (08:39)
[2020-07-24] MEDS: Calcium Carbonate 600 MG + Vit D TAB PO SCH ×2 (08:39→20:26)
[2020-07-24] MEDS: Ferrous Sulfate 325 MG TAB PO SCH (08:39)
[2020-07-24] MEDS: Carvedilol 6.25 MG TAB PO SCH ×2 (08:39→20:26)
[2020-07-24] MEDS: Polyethylene Glycol 3350 17 GM Packet PO SCH (08:40)
[2020-07-24] MEDS: Gabapentin 100 MG CAP PO SCH ×3 (08:40→20:26)
[2020-07-24] MEDS: Enoxaparin Sodium 40 MG/0.4 ML SYRINGE SC SCH (20:55)
--- NOTE | 2020-07-25 08:52 | PRG ---
DATE OF SERVICE: 07/25/2020 SUBJECTIVE: This is a pleasant 85-year-old white female, who fell off her porch and landed on her right side. She had a subsequent right hip fracture, which was repaired by Dr. Kosta Mendoza. The patient eventually stabilized and transferred to [facility] for PT and OT services. Today, the patient states she is doing well overall, but is still having to walk with some pain, still has Colles splint in place. She is eating well, but still has some balance issues. OBJECTIVE: VITAL SIGNS: Temperature 96.8, pulse 80, respirations 18 to 20, O2 sats 97 to 100 on room air, and blood pressure 129/59 to 142/65. GENERAL: Well-appearing, well-developed, 85-year-old female. CV: Regular rate and rhythm. No murmurs, gallops, or rubs. RESPIRATORY: Clear to auscultation bilaterally. No wheezes. ABDOMEN: Soft, nontender to palpation. Bowel sounds positive in all 4 quadrants. EXTREMITIES: No clubbing, cyanosis, or edema. ASSESSMENT: 1. Hypertension. 2. Gastroesophageal reflux disease. 3. Hyperlipidemia. 4. History of spinal stenosis. 5. Status post open reduction and internal fixation of right hip. 6. Status post Colles fracture, immobilized with a splint. 7. Third-degree atrioventricular block with implanted pacemaker. 8. Neuropathy. 9. Generalized weakness. PLAN: 1. Continue with Colles splint. 2. Monitor blood pressure. Adjust medications as needed. Blood pressure well controlled at this time. 3. Continue to monitor the patient's reflux symptoms. 4. Stress ulcer prophylaxis. 5. DVT prophylaxis. 6. Continue PT and OT services. Job ID: [id number]
[2020-07-25] MEDS: Carvedilol 6.25 MG TAB PO SCH ×2 (08:53→21:53)
[2020-07-25] MEDS: Amlodipine 5 MG TAB PO SCH (08:53)
[2020-07-25] MEDS: Calcium Carbonate 600 MG + Vit D TAB PO SCH ×2 (08:53→21:53)
[2020-07-25] MEDS: Gabapentin 100 MG CAP PO SCH ×3 (08:54→21:54)
[2020-07-25] MEDS: Ferrous Sulfate 325 MG TAB PO SCH (08:54)
[2020-07-25] MEDS: Furosemide 40 MG TAB PO SCH (08:54)
[2020-07-25] MEDS: Polyethylene Glycol 3350 17 GM Packet PO SCH (08:54)
[2020-07-25] MEDS: Folic Acid 1 MG TAB PO SCH (08:54)
[2020-07-25] MEDS: Enoxaparin Sodium 40 MG/0.4 ML SYRINGE SC SCH (21:53)
[2020-07-25] MEDS ORDERED: Acetaminophen 325 MG TAB ONE (21:58)
[2020-07-25] MEDS: Acetaminophen 325 MG TAB PO PRN (21:59)
[2020-07-26] MEDS: Furosemide 40 MG TAB PO SCH (08:30)
[2020-07-26] MEDS: Folic Acid 1 MG TAB PO SCH (08:30)
[2020-07-26] MEDS: Ferrous Sulfate 325 MG TAB PO SCH (08:30)
[2020-07-26] MEDS: Gabapentin 100 MG CAP PO SCH ×3 (08:30→20:12)
[2020-07-26] MEDS: Amlodipine 5 MG TAB PO SCH (08:31)
[2020-07-26] MEDS: Carvedilol 6.25 MG TAB PO SCH ×2 (08:31→20:13)
[2020-07-26] MEDS: Calcium Carbonate 600 MG + Vit D TAB PO SCH ×2 (08:31→20:12)
[2020-07-26] MEDS: Polyethylene Glycol 3350 17 GM Packet PO SCH (08:40)
--- NOTE | 2020-07-26 10:05 | PRG ---
DATE OF SERVICE: 07/26/2020 SUBJECTIVE: Ms. Posey is an 85-year-old white female, who fell off a porch, landing on her right side. She had a resultant right hip fracture, and was taken to surgical suite by Dr. Kosta Mendoza. She had open reduction and internal fixation done and she also had a right Colles fracture which was splinted. Eventually, she was stabilized and transferred to [facility] for PT, OT, and pain management. The patient on the weekend did walk quite a bit with the nurses is doing well. She now has a Velcro Colles splint, which is much more comfortable and much more restricted. She has no concerns or complaints and wants to know when she can go home. OBJECTIVE: VITAL SIGNS: Today reveal blood pressure 118/59, pulse 67, respirations 18, O2 saturations 97% on room air, T-max 98.3. GENERAL: This is a well-developed, well-nourished, pleasant, thin white female, in no apparent distress at this time. HEENT: Reveals normocephalic and nontraumatic cranium. Pupils equally round and reactive. Extraocular movements are intact. Nose and throat are slightly dry, but clear. NECK: Supple without masses, nodes, or bruits. CHEST: Clear to auscultation. No rales, rhonchi, wheezes, or cough is heard. HEART: Reveals a regular rate and rhythm without murmurs, gallops, or rubs. ABDOMEN: Soft and nontender. Normal bowel sounds noted in all 4 quadrants. No rebound or guarding is noted. : Deferred. EXTREMITIES: Reveal no clubbing or cyanosis with trace edema. ASSESSMENT: 1. Status post open reduction and internal fixation, right hip. 2. Status post Colles fracture, immobilized with splint. 3. Hypertension. 4. Hyperlipidemia. 5. Gastroesophageal reflux disease. 6. History of spinal stenosis. 7. Third-degree AV block with implanted pacemaker. 8. Neuropathy. 9. Generalized weakness. PLAN: 1. Continue with Colles splint. 2. Continue to encourage the patient to walk with physical therapy and hopefully is going home sometime this week. 3. Continue to monitor the patient's blood pressure closely and adjust medications. 4. Continue to monitor the patient's reflux. 5. Stress ulcer prophylaxis. 6. Decubitus precautions. 7. Continue Lovenox for DVT, but was switched over to Eliquis. 8. Continue supportive care. 9. Continue PT and OT. Job ID: [id number]
[2020-07-26] MEDS ORDERED: Apixaban 5 MG TAB PO SCH (15:30)
[2020-07-26] MEDS: Apixaban 5 MG TAB PO SCH (20:13)
[2020-07-27] MEDS: Furosemide 40 MG TAB PO SCH (09:14)
[2020-07-27] MEDS: Ferrous Sulfate 325 MG TAB PO SCH (09:14)
[2020-07-27] MEDS: Amlodipine 5 MG TAB PO SCH (09:14)
[2020-07-27] MEDS: Calcium Carbonate 600 MG + Vit D TAB PO SCH ×2 (09:14→20:18)
[2020-07-27] MEDS: Folic Acid 1 MG TAB PO SCH (09:14)
[2020-07-27] MEDS: Carvedilol 6.25 MG TAB PO SCH ×2 (09:15→20:17)
[2020-07-27] MEDS: Apixaban 5 MG TAB PO SCH ×2 (09:15→20:17)
[2020-07-27] MEDS: Gabapentin 100 MG CAP PO SCH ×3 (09:15→20:16)
[2020-07-27] MEDS: Polyethylene Glycol 3350 17 GM Packet PO SCH (09:15)
--- NOTE | 2020-07-27 09:34 | PRG ---
DATE OF SERVICE: 07/27/2020 SUBJECTIVE: Ms. Posey is an 85-year-old white female, who fell off her porch. She had a resultant right hip fracture and a right Colles fracture. She was taken to the hospital at [facility], where Dr. Kosta Mendoza took her to the surgical suite and had open reduction and internal fixation of her right hip. She was splinted for the right Colles fracture. Eventually, she was stabilized and transferred to [facility] for physical therapy and occupational therapy and pain management. The patient continues to do fairly well, but is very slow and is somewhat wobbly. She is walking better, but her gait is much more staccato and not free flowing yet. She states she is doing well and wants to go home soon. OBJECTIVE: VITAL SIGNS: Reveal blood pressure this morning 134/65, pulse 77 to 79, respirations 18, oxygen saturation 97% to 100% on room air, and T-max 97.4. GENERAL: This is a well-developed, well-nourished, slightly obese white female, in no apparent distress at this time. HEENT: Reveals normocephalic and nontraumatic cranium. Pupils equally round and reactive. Extraocular movements are intact. Nose and throat are dry. NECK: Supple without masses, nodes, or bruits. CHEST: Clear to auscultation. No rales, rhonchi, wheezes, or cough is heard. HEART: Reveals a regular rate and rhythm without murmurs, gallops, or rubs. ABDOMEN: Soft and nontender. Normal bowel sounds noted in all 4 quadrants. No rebound or guarding is noted. : Deferred. EXTREMITIES: Reveal no clubbing or cyanosis. Trace edema. Surgical incision is clean and dry. ASSESSMENT: 1. Status post open reduction and internal fixation of the right hip. 2. Status post Colles fracture, immobilized with a splint. 3. Hypertension. 4. Hyperlipidemia. 5. Gastroesophageal reflux disease. 6. History of spinal stenosis. 7. Third-degree AV block with implanted pacemaker. 8. Neuropathy. 9. Generalized weakness. PLAN: 1. Continue Colles splint. 2. Continue with physical therapy and occupational therapy to get the patient up and walking better with less wobbling and better balance. 3. Continue to monitor the patient's blood pressure closely and adjust medications as needed. 4. Continue to monitor the patient's reflux. 5. Stress ulcer prophylaxis. 6. Decubitus precautions. 7. Continue Lovenox for DVT, which was switched over to Eliquis yesterday. 8. Continue supportive care. 9. Continue PT and OT. Job ID: [id number]
[2020-07-28 05:10] LABS: Hemoglobin 9.5 g/dL (12.0-16.0); Platelet Count 217 thou/uL (130-400)
[2020-07-28] MEDS: Amlodipine 5 MG TAB PO SCH (08:09)
[2020-07-28] MEDS: Calcium Carbonate 600 MG + Vit D TAB PO SCH ×2 (08:09→20:19)
[2020-07-28] MEDS: Apixaban 5 MG TAB PO SCH ×2 (08:09→20:21)
[2020-07-28] MEDS: Carvedilol 6.25 MG TAB PO SCH ×2 (08:09→20:21)
[2020-07-28] MEDS: Gabapentin 100 MG CAP PO SCH ×3 (08:10→20:20)
[2020-07-28] MEDS: Ferrous Sulfate 325 MG TAB PO SCH (08:10)
[2020-07-28] MEDS: Folic Acid 1 MG TAB PO SCH (08:10)
[2020-07-28] MEDS: Furosemide 40 MG TAB PO SCH (08:10)
[2020-07-28] MEDS: Polyethylene Glycol 3350 17 GM Packet PO SCH (08:12)
--- NOTE | 2020-07-28 11:02 | PRG ---
DATE OF SERVICE: 07/28/2020 SUBJECTIVE: Ms. Posey is an 85-year-old white female, who fell off the porch and had a resultant right hip fracture and right Colles fracture. She was taken to the hospital at [facility], where Dr. Kosta Mendoza took her to the surgical suite and had open reduction and internal fixation of the right hip. She was splinted for the right Colles fracture. Eventually, she was stabilized and transferred to [facility] for physical therapy and occupational therapy. The patient continues to do well, but she has difficulty remembering her safety issues. She is almost ready for discharge, but we will have to make sure that when she goes home, she has someone staying with her. I did call Pauly Lara, case work aide, to talk with her about those issues. OBJECTIVE: VITAL SIGNS: This morning reveal blood pressure is 114/62, pulse 75, respirations 18, O2 saturation 96% on room air, and T-max 97.8. GENERAL: This is a well-developed, well-nourished, pleasant white female, in no apparent distress at this time. HEENT: Reveals normocephalic and nontraumatic cranium. Pupils are equally round and reactive. Extraocular movements are intact. Nose and throat are slightly dry. NECK: Supple without masses, nodes, or bruits. CHEST: Clear to auscultation. No rales, rhonchi, wheezes, or cough is heard. HEART: Reveals a regular rate and rhythm without murmurs, gallops, or rubs. ABDOMEN: Soft and nontender without organomegaly. Normal bowel sounds in all 4 quadrants. No rebound or guarding is noted. : Deferred. EXTREMITIES: Reveal no clubbing or cyanosis with trace edema. Surgical incisions are still clean and dry. ASSESSMENT: 1. Hypertension. 2. Hyperlipidemia. 3. Gastroesophageal reflux disease. 4. History of spinal stenosis. 5. Third-degree AV block with implanted pacemaker. 6. Neuropathy. 7. Status post open reduction and internal fixation of the right hip. 8. Status post Colles fracture, immobilized with a splint. 9. Generalized weakness. PLAN: 1. Continue to monitor the patient's blood pressure closely and adjust medications as needed. 2. Monitor the patient's reflux. 3. Stress ulcer prophylaxis. 4. Decubitus precautions. 5. The patient has DVT prophylaxis with Eliquis. 6. Continue Colles splint. 7. Physical therapy and occupational therapy to stress safety issues. 8. Continue supportive care. 9. Discharge home soon. Job ID: [id number] [facility]
[2020-07-29 05:41] LABS: ALT (SGPT) 13 U/L (8-55); AST (SGOT) 16 U/L (5-34); Albumin 2.9 g/dL (3.4-4.8); Alkaline Phosphatase 76 U/L (40-110); Anion Gap 13 mmol/L (10-20); BUN (Urea Nitrogen) 19 mg/dL (9.8-20.1); Bilirubin, Total 0.4 mg/dL (0.2-1.2); Calc. Creatinine Clearance 57 mL/min (70-130); Calcium 8.6 mg/dL (7.8-10.44); Carbon Dioxide 26 mmol/L (23-31); Chloride 105 mmol/L (98-107); Estimated GFR-MDRD 74; Globulin 2.3 g/dL (2.4-3.5); Glucose 90 mg/dL (83-110); Potassium 3.6 mmol/L (3.5-5.1); Protein, Total 5.2 g/dL (6.0-8.3); Sodium 140 mmol/L (136-145)
[2020-07-29] MEDS: Carvedilol 6.25 MG TAB PO SCH ×2 (08:38→21:14)
[2020-07-29] MEDS: Amlodipine 5 MG TAB PO SCH (08:38)
[2020-07-29] MEDS: Gabapentin 100 MG CAP PO SCH ×3 (08:39→21:11)
[2020-07-29] MEDS: Calcium Carbonate 600 MG + Vit D TAB PO SCH ×2 (08:39→21:11)
[2020-07-29] MEDS: Furosemide 40 MG TAB PO SCH (08:39)
[2020-07-29] MEDS: Ferrous Sulfate 325 MG TAB PO SCH (08:39)
[2020-07-29] MEDS: Folic Acid 1 MG TAB PO SCH (08:39)
[2020-07-29] MEDS: Apixaban 5 MG TAB PO SCH ×2 (08:39→21:12)
[2020-07-29] MEDS: Polyethylene Glycol 3350 17 GM Packet PO SCH (08:40)
--- NOTE | 2020-07-29 10:24 | PRG ---
DATE OF SERVICE: 07/29/2020 SUBJECTIVE: The patient is an 85-year-old white female, who fell off her porch and had a resultant right hip fracture and a right Colles fracture. She was taken to the surgical suite at [facility], where Dr. Kosta Mendoza did an open reduction and internal fixation of her right hip and splinted her right Colles fracture. Eventually, she was stabilized and transferred to [facility] for PT and OT. The patient states she is doing well, but wants to go home. We did talk with Case Management and she would be able to go home tomorrow, the next day, but I told her I would prefer that she stay until next Sunday because of her balance, she needs to continue inpatient rehab, but she is pretty much insisting. Hopefully, I can convince her to stay another few days. OBJECTIVE: VITAL SIGNS: Today revealed blood pressure 134/63, pulse 81, respirations 18, O2 saturation 98% on room air, and T-max 98.7. GENERAL: This is a well-developed, well-nourished, slightly obese white female, in no apparent distress at this time. HEENT: Reveals normocephalic and nontraumatic cranium. Pupils are equal, round, and reactive. Extraocular movements are intact. Nose and throat are slightly dry, but clear. NECK: Supple without masses, nodes, or bruits. CHEST: Clear to auscultation. No rales, rhonchi, wheezes, or cough is heard. HEART: Reveals a regular rate and rhythm without murmurs, gallops, or rubs. ABDOMEN: Soft and nontender. Normal bowel sounds are noted in all 4 quadrants. No rebound or guarding is noted. : Deferred. EXTREMITIES: Revealed no clubbing, cyanosis, or edema. Surgical incision is clean, not draining. ASSESSMENT: 1. Hypertension. 2. Hyperlipidemia. 3. Gastroesophageal reflux disease. 4. History of spinal stenosis. 5. Third-degree AV block with implanted pacemaker. 6. Neuropathy. 7. Status post open reduction and internal fixation of the right hip. 8. Status post Colles fracture, immobilized with a splint. 9. Generalized weakness. PLAN: 1. We will continue to monitor the patient's blood pressure closely, adjust medications as needed. 2. Monitor the patient's reflux. 3. Stress ulcer prophylaxis. 4. Decubitus precautions. 5. DVT prophylaxis with Eliquis. 6. Continue Colles splint. 7. Continue physical therapy and occupational therapy. 8. Continue supportive care. 9. Discharge home hopefully next week unless the patient insists on leaving tomorrow. Job ID: [id number]
[2020-07-30] MEDS: Carvedilol 6.25 MG TAB PO SCH ×2 (09:19→20:28)
[2020-07-30] MEDS: Folic Acid 1 MG TAB PO SCH (09:19)
[2020-07-30] MEDS: Furosemide 40 MG TAB PO SCH (09:19)
[2020-07-30] MEDS: Calcium Carbonate 600 MG + Vit D TAB PO SCH ×2 (09:19→20:27)
[2020-07-30] MEDS: Apixaban 5 MG TAB PO SCH ×2 (09:19→20:28)
[2020-07-30] MEDS: Gabapentin 100 MG CAP PO SCH ×3 (09:19→20:28)
[2020-07-30] MEDS: Ferrous Sulfate 325 MG TAB PO SCH (09:19)
[2020-07-30] MEDS: Amlodipine 5 MG TAB PO SCH (09:20)
[2020-07-30] MEDS: Polyethylene Glycol 3350 17 GM Packet PO SCH (09:20)
[2020-07-31] MEDS: Gabapentin 100 MG CAP PO SCH (08:24)
[2020-07-31] MEDS: Carvedilol 6.25 MG TAB PO SCH (08:24)
[2020-07-31] MEDS: Ferrous Sulfate 325 MG TAB PO SCH (08:25)
[2020-07-31] MEDS: Apixaban 5 MG TAB PO SCH (08:25)
[2020-07-31] MEDS: Amlodipine 5 MG TAB PO SCH (08:25)
[2020-07-31] MEDS: Furosemide 40 MG TAB PO SCH (08:25)
[2020-07-31] MEDS: Calcium Carbonate 600 MG + Vit D TAB PO SCH (08:25)
[2020-07-31] MEDS: Folic Acid 1 MG TAB PO SCH (08:25)
[2020-07-31] MEDS: Polyethylene Glycol 3350 17 GM Packet PO SCH (08:26)
[2020-07-31 09:09] VITALS: BP 126/59; TEMP 98.9
--- NOTE | 2020-08-03 05:08 | DIS ---
DATE OF ADMISSION: 07/06/2020 DATE OF DISCHARGE: 07/31/2020 HOSPITAL COURSE: The patient is a well-developed, well-nourished 85-year-old white female, who was standing on her front porch when she fell off. She fell on her right side and had a resultant right hip fracture. She also had a right Colles fracture. She was taken to surgical suite at [facility] by Dr. Kosta Mendoza. He did open reduction and internal fixation on the right hip and splinted her right Colles fracture. Eventually, she was stabilized and transferred to [facility] for PT and OT. The patient states she is doing well and wants to go home. She states she has talked with her son and he will pick her up tomorrow. We did talk with case management and they do have her set up for home health. I told I would prefer that she stay until Sunday for more therapy, but she states she is going home. PHYSICAL EXAMINATION: VITAL SIGNS: Today reveal blood pressure 139/68, pulse 74, respirations 20, O2 saturation 98% on room air, T-max 98.3. GENERAL: This is a well-developed, well-nourished, very pleasant 85-year-old white female, in no apparent distress at this time. HEENT: Normocephalic and nontraumatic cranium. Pupils are equal, round, and reactive. Extraocular movements are intact. Nose and throat are dry. NECK: Supple without masses, nodes, or bruits. CHEST: Clear to auscultation. No rales, rhonchi, wheezes, or cough is heard. HEART: Reveals a regular rate and rhythm without murmurs, gallops, or rubs. ABDOMEN: Soft and nontender. Normal bowel sounds noted in all 4 quadrants. No rebound or guarding is noted. : Deferred. EXTREMITIES: Reveal no clubbing, cyanosis, or significant edema. Surgical incision is clean and not draining. ASSESSMENT: 1. Status post open reduction and internal fixation of the right hip. 2. Status post Colles fracture, immobilized with a splint. 3. Hypertension. 4. Hyperlipidemia. 5. Gastroesophageal reflux disease. 6. History of spinal stenosis. 7. Third-degree AV block with implanted pacemaker. 8. Neuropathy. 9. Generalized weakness. PLAN: 1. The patient is doing well and did well in therapy today. 2. The patient is insisting on going home and does not want to wait until next Sunday. 3. We will continue to monitor the patient's blood pressure until she is picked up tomorrow by her son. 4. Adjust medications as needed. 5. Stress ulcer prophylaxis. 6. Decubitus precautions. 7. The patient will continue with DVT prophylaxis with Eliquis. 8. Continue Colles splint. 9. Continue supportive care. 10. Discharge tomorrow when the patient's son picks her up. 11. Continue PT and OT via home health. DISCHARGE MEDICATIONS: Include the following; 1. Acetaminophen 500 mg one or two q.6 p.r.n. 2. Amlodipine 5 mg daily. 3. Eliquis 5 mg b.i.d. 4. Calcium 600 mg plus vitamin D 400 mg b.i.d. 5. Carvedilol 12.5 mg b.i.d. 6. Ferrous sulfate 325 daily. 7. Folic acid 1 mg daily. 8. Lasix 40 mg daily. 9. Gabapentin 100 mg up to three times a day. 10. MiraLAX 17 g daily. 11. Seroquel 25 mg at bedtime. The patient's son will pick her up tomorrow morning. Job ID: [id number]
== END 2020-07-31 14:35 | disposition home health service (06) | DRG 560 ==
LOC: NAV ACUTE 20:40
PROVIDERS: ADMIT Family Medicine; ATTEND Family Medicine
DX: Z47.89 Encounter for other orthopedic aftercare (principal); I44.2 Atrioventricular block, complete; I10 Essential (primary) hypertension; E78.5 Hyperlipidemia, unspecified; K21.9 Gastro-esophageal reflux disease without esophagitis; R53.1 Weakness; G62.9 Polyneuropathy, unspecified; E78.00 Pure hypercholesterolemia, unspecified; F03.90 Unspecified dementia, unspecified severity, without behavioral disturbance, psychotic disturbance, mood disturbance, and anxiety; R53.81 Other malaise; M48.00 Spinal stenosis, site unspecified; G56.02 Carpal tunnel syndrome, left upper limb; Z95.0 Presence of cardiac pacemaker; Z88.0 Allergy status to penicillin; Z88.2 Allergy status to sulfonamides; Z88.8 Allergy status to other drugs, medicaments and biological substances; Z90.49 Acquired absence of other specified parts of digestive tract; R07.89 Other chest pain; S52.531D Colles' fracture of right radius, subsequent encounter for closed fracture with routine healing
CPT/HCPCS: 80053; 81001; 84134; 85014; 85018; 85025; 85049; 90471; 90662; G0008; J1650

== ENCOUNTER 2021-12-25 13:55 | Emergency (ER) | payer OTHER, MEDICARE ==
[2021-12-25 15:06] LABS: Bilirubin Small (Negative); Blood, Urine Negative (Negative); Glucose, Urine (Dipstick) Negative (Negative); Ketone, Urine Negative (Negative); Leukocyte Negative (Negative); Nitrite Negative (Negative); Protein, Urine (Dipstick) 30 mg/dL (Neg-Trace); Specific Gravity, Urine 1.025 (1.005-1.030)
[2021-12-25 15:07] LABS: Clarity Hazy (Clear)
[2021-12-25 15:08] LABS: Bacteria/HPF 4+ HPF (None Seen); Mucous/LPF 2+ LPF (<2+); Squamous Epithelial 0-3 HPF (0-3)
[2021-12-25] MEDS ORDERED: Nitrofurantoin Macrocrystal 50 MG CAP ONE (15:23)
[2021-12-25] MEDS ORDERED: Ibuprofen 200 MG TAB ONE (15:23)
== END 2021-12-25 15:30 | disposition home or self-care (01) ==
LOC: NAV ERS 13:55
DX: S22.42XA Multiple fractures of ribs, left side, initial encounter for closed fracture (principal); R82.71 Bacteriuria; I10 Essential (primary) hypertension; E78.5 Hyperlipidemia, unspecified; E78.00 Pure hypercholesterolemia, unspecified; I25.10 Atherosclerotic heart disease of native coronary artery without angina pectoris; W18.11XA Fall from or off toilet without subsequent striking against object, initial encounter; Y92.002 Bathroom of unspecified non-institutional (private) residence as the place of occurrence of the external cause; Z79.899 Other long term (current) drug therapy
CPT/HCPCS: 51701; 81003; 81015

== ENCOUNTER 2023-01-12 11:26 | Outpatient (CLI) | payer MEDICARE | END 2023-01-12 11:27 | disposition home or self-care (01) | LOC: NAV RAD 11:26 | PROVIDERS: ATTEND Family Medicine | DX: M48.062 Spinal stenosis, lumbar region with neurogenic claudication (principal); S22.080A Wedge compression fracture of T11-T12 vertebra, initial encounter for closed fracture; M47.816 Spondylosis without myelopathy or radiculopathy, lumbar region | CPT/HCPCS: 72100 ==

== ENCOUNTER 2023-01-12 11:54 | Emergency (ER) | payer OTHER, MEDICARE ==
[2023-01-12] MEDS ORDERED: traMADol HCl 50 MG TAB ONE (12:35)
== END 2023-01-12 14:05 | disposition home or self-care (01) ==
LOC: NAV ERS 11:54
DX: S83.92XA Sprain of unspecified site of left knee, initial encounter (principal); S20.212A Contusion of left front wall of thorax, initial encounter; S90.31XA Contusion of right foot, initial encounter; E78.00 Pure hypercholesterolemia, unspecified; I10 Essential (primary) hypertension; W01.198A Fall on same level from slipping, tripping and stumbling with subsequent striking against other object, initial encounter; Z79.899 Other long term (current) drug therapy
CPT/HCPCS: 70450; 72100; 72125